=== PATIENT | female | born 1975 | race Caucasian/White ===

== ENCOUNTER → 2020-05-09 | Outpatient (CLI) | payer MEDICARE, OTHER ==
[~2020-05-09] MED LIST: COZAAR50 MG PO; LEVOTHYROXINE50 MCG PO; MULTI FOR HER1 EACH PO; NORCO 5-325 TA1 EACH PO; PRILOSEC OTC20 MG PO; RED YEAST RICE600 MG PO; RISPERDAL2 MG PO; WELLBUTRIN SR150 MG PO
== END ==
LOC: KOH-I 15:16
DX: M54.6 Pain in thoracic spine (principal); M54.5 Low back pain; M47.816 Spondylosis without myelopathy or radiculopathy, lumbar region; Z90.49 Acquired absence of other specified parts of digestive tract; M48.061 Spinal stenosis, lumbar region without neurogenic claudication; M48.07 Spinal stenosis, lumbosacral region; M47.817 Spondylosis without myelopathy or radiculopathy, lumbosacral region
CPT/HCPCS: 72070; 72110

== ENCOUNTER → 2021-08-14 | Outpatient (CLI) | payer MEDICARE, OTHER | LOC: NM 07-24 08:10 | DX: R74.8 Abnormal levels of other serum enzymes (principal); K76.0 Fatty (change of) liver, not elsewhere classified | CPT/HCPCS: 76700; 78306; A9503 ==

== ENCOUNTER → 2021-09-20 | Outpatient (CLI) | payer MEDICARE, OTHER | LOC: KOH-I 15:29 | DX: R94.8 Abnormal results of function studies of other organs and systems (principal) | CPT/HCPCS: 71250 ==

== ENCOUNTER → 2021-12-26 | Outpatient (CLI) | payer MEDICARE, OTHER | LOC: KOH-I 10:44 | DX: R79.89 Other specified abnormal findings of blood chemistry (principal); R94.5 Abnormal results of liver function studies; K59.09 Other constipation; R14.3 Flatulence | CPT/HCPCS: 74018 ==